=== PATIENT | female | born 1980 | race African-American/Black ===

== ENCOUNTER 2018-08-05 21:09 | Emergency (ER) | payer OTHER ==
[2018-08-05 22:06] LABS: Absolute Lymphocytes (CBC) 1.6 K/uL (0.7-4.9); Absolute Monocytes 0.9 K/uL (0.1-1.3); Absolute Neutrophil 4.9 K/uL (1.8-8.0); Basophils % 0.5 % (0-1.3); Eosinophils % 4.9 % (0-4.4); Hematocrit 36.7 % (36.0-45.0); Lymphocytes % 20.7 % (15.3-44.8); MPV 9.7 fL (7.6-11.3); Monocytes % 11.5 % (3.3-12.3); RBC Red Blood Cell Count 4.37 M/uL (3.86-4.86)
[2018-08-05 22:23] LABS: Albumin 3.7 g/dL (3.4-5.0); Bilirubin Direct 0.2 mg/dL (0-0.2); Bilirubin Total 0.7 mg/dL (0.2-1.0); Potassium 3.8 mmol/L (3.5-5.1); Protein, Total 7.8 g/dL (6.4-8.2)
[2018-08-05] MEDS ORDERED: FENTANYL CITR 100 MCG/2 ML ONE (22:23)
[2018-08-05] MEDS ORDERED: NA CHLORIDE 0.9% 1,000 ML ONE (22:23)
[2018-08-05] MEDS ORDERED: ONDANSETRON 4 MG/2 ML VIAL ONE (22:27)
--- NOTE | 2018-08-05 23:26 | EDPHYS ---
Physician Documentation [facility] Name: Marlee Husain Age: 38 yrs Sex: Female : 1980 Arrival Date: 08/05/2018 Time: 21:12 Bed 8 Private MD: [place] Rhoades ED Physician William Galvan HPI: 08/06 00:41 This 38 yrs old Black Female presents to ER via Ambulatory with complaints of UC FLAIR gs UP. 00:41 The patient presents with abdominal pain in the upper abdomen. Onset: The gs symptoms/episode began/occurred 3 day(s) ago, and became worse and became persistent. The symptoms do not radiate. Associated signs and symptoms: Pertinent positives: nausea and vomiting, diarrhea, Pertinent negatives: blood in stools, vomiting blood. The symptoms are described as crampy, sharp. Modifying factors: The symptoms are alleviated by nothing, the symptoms are aggravated by nothing. Severity of pain: At its worst the pain was severe in the emergency department the pain is unchanged. The patient has experienced similar episodes in the past, multiple times, chronically. The patient has not recently seen a physician. 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 - Social history:: Smoking status: Patient/guardian denies using tobacco. - Ebola Screening: : No symptoms or risks identified at this time. ROS: 08/06 00:41 All other systems are negative. gs Exam: 00:41 Head/Face: Normocephalic, atraumatic. Eyes: Pupils equal round and reactive to light, gs extra-ocular motions intact. Lids and lashes normal. Conjunctiva and sclera are non-icteric and not injected. Cornea within normal limits. Periorbital areas with no swelling, redness, or edema. ENT: Nares patent. No nasal discharge, no septal abnormalities noted. Tympanic membranes are normal and external auditory canals are clear. Oropharynx with no redness, swelling, or masses, exudates, or evidence of obstruction, uvula midline. Mucous membranes moist. Neck: Trachea midline, no thyromegaly or masses palpated, and no cervical lymphadenopathy. Supple, full range of motion without nuchal rigidity, or vertebral point tenderness. No Meningismus. Chest/axilla: Normal chest wall appearance and motion. Nontender with no deformity. No lesions are appreciated. 00:41 Respiratory: Lungs have equal breath sounds bilaterally, clear to auscultation and percussion. No rales, rhonchi or wheezes noted. No increased work of breathing, no retractions or nasal flaring. Back: No spinal tenderness. No costovertebral tenderness. Full range of motion. Skin: Warm, dry with normal turgor. Normal color with no rashes, no lesions, and no evidence of cellulitis. MS/ Extremity: Pulses equal, no cyanosis. Neurovascular intact. Full, normal range of motion. Neuro: Awake and alert, GCS 15, oriented to person, place, time, and situation. Cranial nerves II-XII grossly intact. Motor strength 5/5 in all extremities. Sensory grossly intact. Cerebellar exam normal. Normal gait. 00:41 Constitutional: The patient appears alert, awake, uncomfortable. 00:41 Cardiovascular: Rate: tachycardic, Rhythm: regular, Pulses: no pulse deficits are appreciated, Heart sounds: normal. 00:41 Abdomen/GI: Palpation: moderate abdominal tenderness, in all quadrants, rebound tenderness, is not appreciated. Vital Signs: 08/05 21:28 BP 115 / 96; Pulse 112; Resp 16; Temp 98.5(O); Pulse Ox 98% on R/A; Height 5 ft. 7 in. la1 (170.18 cm); Pain 10/10; 22:15 BP 118 / 91; Pulse 100; Resp 16; Pulse Ox 100% ; aa1 23:43 BP 125 / 90; Pulse 97; Resp 16; Pulse Ox 99% on R/A; Pain 1/10; aa1 MDM: 22:01 Patient medically screened. gs 08/06 00:41 Differential diagnosis: gastritis, non-specific abd pain, pancreatitis, uc flare. Data gs reviewed: vital signs, nurses notes, lab test result(s). Counseling: I had a detailed discussion with the patient and/or guardian regarding: the historical points, exam findings, and any diagnostic results supporting the discharge/admit diagnosis, lab results, the need for outpatient follow up. Response to treatment: the patient's symptoms have markedly improved after treatment, the patient's condition has returned to base line, and as a result, I will discharge patient. 08/05 21:51 Order name: Basic Metabolic Panel; Complete Time: 23:18 08/05 21:51 Order name: CBC with Diff; Complete Time: 23:18 08/05 21:51 Order name: Hepatic Function; Complete Time: 23:18 08/05 21:51 Order name: Lipase; Complete Time: 23:18 08/05 21:51 Order name: Urine Microscopic Only 08/05 23:36 Order name: Urine Dipstick--Ancillary (enter results) 2 08/05 21:51 Order name: IV Saline Lock; Complete Time: 22:02 08/05 21:51 Order name: Labs collected and sent; Complete Time: 22:02 08/05 21:51 Order name: Urine Test (obtain specimen); Complete Time: 23:37 08/05 21:51 Order name: Urine Dipstick-Ancillary (obtain specimen); Complete Time: 23:37 08/05 23:36 Order name: Urine --Ancillary (enter results) 2 Administered Medications: 08/05 22:13 Drug: NS 0.9% 1000 ml Route: IV; Rate: 1 bolus; Site: right antecubital; ea 23:36 Follow up: IV Status: Completed infusion; IV Intake: 1000ml aa1 22:15 Drug: fentaNYL (PF) 50 mcg Route: IVP; Site: right antecubital; aa1 23:36 Follow up: Response: No adverse reaction; Pain is decreased aa1 22:17 Drug: Zofran 4 mg Route: IVP; Site: right antecubital; ea 23:36 Follow up: Response: No adverse reaction; Nausea is decreased aa1 Disposition: 08/05/18 23:25 Discharged to Home. Impression: Vomiting, Diarrhea, unspecified, Ulcerative (chronic) pancolitis. - Condition is Stable. - Discharge Instructions: Diarrhea, Adult, Nausea and Vomiting, Adult. - Prescriptions for Prednisone 20 mg Oral Tablet - take 1 tablet by ORAL route once daily for 5 days; 5 tablet. Zofran 4 mg Oral Tablet - take 1 tablet by ORAL route every 12 hours As needed; 6 tablet. - Medication Reconciliation Form, Thank You Letter, Antibiotic Education, Prescription Opioid Use form. - Follow up: Private Physician; When: 2 - 3 days; Reason: Re-evaluation by your physician. Signatures: Dispatcher [employer] EDAR Ashley Guidry RN RN aa1 Job Terry RN RN la1 Yusra Guerrier RN RN ea Starr, Gregory, MD MD gs Corrections: (The following items were deleted from the chart) 23:45 23:25 08/05/2018 23:25 Discharged to Home. Impression: Vomiting; Diarrhea, unspecified; aa1 Ulcerative (chronic) pancolitis. Condition is Stable. Forms are Medication Reconciliation Form, Thank You Letter, Antibiotic Education, Prescription Opioid Use. Follow up: Private Physician; When: 2 - 3 days; Reason: Re-evaluation by your physician. gs
--- NOTE | 2018-08-05 23:26 | ER ---
Nurse's Notes [facility] Name: Marlee Husain Age: 38 yrs Sex: Female : 1980 Arrival Date: 08/05/2018 Time: 21:12 Bed 8 Private MD: Houston Rhoades Diagnosis: Vomiting;Diarrhea, unspecified;Ulcerative (chronic) pancolitis Presentation: 08/05 21:25 Presenting complaint: Patient states: I have UC and I have been having abd pain, N/V/D la1 since Tuesday, its getting worse. Transition of care: patient was not received from another setting of care. Onset of symptoms was August 05, 2018. Risk Assessment: Do you want to hurt yourself or someone else? Patient reports no desire to harm self or others. Initial Sepsis Screen: Does the patient meet any 2 criteria? No. Patient's initial sepsis screen is negative. Does the patient have a suspected source of infection? No. Patient's initial sepsis screen is negative. Care prior to arrival: None. 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 - Social history:: Smoking status: Patient/guardian denies using tobacco. - Ebola Screening: : No symptoms or risks identified at this time. Screenin:40 Abuse screen: Denies threats or abuse. Denies injuries from another. Nutritional aa1 screening: No deficits noted. Tuberculosis screening: No symptoms or risk factors identified. Fall Risk None identified. Assessment: 21:40 General: Appears in no apparent distress. comfortable, Behavior is calm, cooperative, aa1 appropriate for age. Pain: Complains of pain in abdomen Pain currently is 10 out of 10 on a pain scale. Pain began 2-3 days ago. Is continuous. Neuro: Level of Consciousness is awake, alert, obeys commands, Oriented to person, place, time, situation, Moves all extremities. Speech is normal. Cardiovascular: Heart tones S1 S2 present. Respiratory: Airway is patent Respiratory effort is even, unlabored, Respiratory pattern is regular, symmetrical. GI: Abdomen is non-distended, Bowel sounds present X 4 quads. Abd is soft X 4 quads Reports lower abdominal pain, upper abdominal pain, diarrhea, nausea, vomiting. : No signs and/or symptoms were reported regarding the genitourinary system. Derm: Skin is intact, is healthy with good turgor, Skin is pink, warm \T\ dry. Musculoskeletal: Circulation, motion, and sensation intact. Capillary refill < 3 seconds. 22:30 Reassessment: Patient appears in no apparent distress at this time. Patient and/or aa1 family updated on plan of care and expected duration. Pain level reassessed. Patient is alert, oriented x 3, equal unlabored respirations, skin warm/dry/pink. Awaiting lab results and urine sample Patient states feeling better. 23:43 Reassessment: Patient appears in no apparent distress at this time. Patient is alert, aa1 oriented x 3, equal unlabored respirations, skin warm/dry/pink. Discussed d/c \T\ f/u instructions with pt \T\ family; denies questions or concerns at this time. Amb to lobby with steady gait. Vital Signs: 21:28 BP 115 / 96; Pulse 112; Resp 16; Temp 98.5(O); Pulse Ox 98% on R/A; Height 5 ft. 7 in. la1 (170.18 cm); Pain 10/10; 22:15 BP 118 / 91; Pulse 100; Resp 16; Pulse Ox 100% ; aa1 23:43 BP 125 / 90; Pulse 97; Resp 16; Pulse Ox 99% on R/A; Pain 1/10; aa1 ED Course: 21:12 Patient arrived in ED. es 21:13 Houston Rhoades MD is Private Physician. es 21:26 Triage completed. la1 21:27 Arm band placed on right wrist. la1 21:33 William Galvan MD is Attending Physician. gs 21:40 Patient has correct armband on for positive identification. Bed in low position. Call aa1 light in reach. Pulse ox on. NIBP on. Warm blanket given. 21:56 Ashley Guidry, RN is Primary Nurse. aa1 22:02 Inserted saline lock: 20 gauge in right antecubital area, using aseptic technique. mn Blood collected. 23:43 No provider procedures requiring assistance completed. IV discontinued, intact, aa1 bleeding controlled, No redness/swelling at site. Pressure dressing applied. Administered Medications: 22:13 Drug: NS 0.9% 1000 ml Route: IV; Rate: 1 bolus; Site: right antecubital; ea 23:36 Follow up: IV Status: Completed infusion; IV Intake: 1000ml aa1 22:15 Drug: fentaNYL (PF) 50 mcg Route: IVP; Site: right antecubital; aa1 23:36 Follow up: Response: No adverse reaction; Pain is decreased aa1 22:17 Drug: Zofran 4 mg Route: IVP; Site: right antecubital; ea 23:36 Follow up: Response: No adverse reaction; Nausea is decreased aa1 Intake: 23:36 IV: 1000ml; Total: 1000ml. aa1 Outcome: 23:25 Discharge ordered by . gs 23:43 Discharged to home ambulatory, with significant other. aa1 23:43 Condition: good 23:43 Discharge instructions given to patient, significant other, Instructed on discharge instructions, follow up and referral plans. medication usage, Demonstrated understanding of instructions, follow-up care, medications, Prescriptions given X 2. 23:45 Patient left the ED. aa1 Signatures: Ashley Guidry RN RN aa1 Misty Mcbride Lee, RN RN la1 Thompson, Moriah mt Antunez, Elena, RN RN ea Starr, Gregory, MD MD
[2018-08-05 23:43] LABS: Urine Bacteria <20 /HPF (<20); Urine Culture Reflex Order NOT NEEDED; Urine RBC <5 /HPF (NONE SEEN)
[2018-08-05 23:45] LABS: Urine Blood TRACE (NEG); Urine Glucose NEGATIVE (NEG); Urine Protein NEGATIVE (NEG); Urine Specific Gravity 1.025 (1.005-1.030)
[2018-08-05 23:56] VITALS: TEMP 98.5
[2018-08-05 23:57] VITALS: BP 118/91; O2SAT 100
== END 2018-08-05 23:45 | disposition home or self-care (01) ==
LOC: ER 21:09
DX: K51.00 Ulcerative (chronic) pancolitis without complications (principal); Z88.5 Allergy status to narcotic agent
CPT/HCPCS: 36415; 80048; 80076; 81003; 81015; 81025; 83690; 85025; 96361; 96374; 96375; 99284; J2405; J3010; J7030

== ENCOUNTER 2018-08-06 09:10 | Inpatient (IN) | payer OTHER ==
[2018-08-06 10:09] LABS: Hematocrit 35.8 % (36.0-45.0); RBC Red Blood Cell Count 4.27 M/uL (3.86-4.86)
[2018-08-06 10:10] LABS: Absolute Monocytes 0.6 K/uL (0.1-1.3); Absolute Neutrophil 7.1 K/uL (1.8-8.0); Basophils % 0.3 % (0-1.3); Eosinophils % 2.5 % (0-4.4); Lymphocytes % 11.5 % (15.3-44.8); MPV 9.7 fL (7.6-11.3); Monocytes % 6.9 % (3.3-12.3)
[2018-08-06] MEDS ORDERED: ONDANSETRON 4 MG/2 ML VIAL ONE ×2 (10:14→11:09)
[2018-08-06] MEDS ORDERED: NA CHLORIDE 0.9% 1,000 ML ONE ×3 (10:15→18:43)
[2018-08-06 10:25] LABS: Albumin 3.4 g/dL (3.4-5.0); Bilirubin Direct 0.2 mg/dL (0-0.2); Bilirubin Total 0.6 mg/dL (0.2-1.0); Potassium 4.1 mmol/L (3.5-5.1); Protein, Total 7.4 g/dL (6.4-8.2)
[2018-08-06] MEDS ORDERED: FENTANYL CITR 100 MCG/2 ML ONE (10:39)
[2018-08-06] MEDS ORDERED: PANTOPRAZOLE 40 MG INJ ONE (10:39)
[2018-08-06] MEDS ORDERED: METRONIDAZOLE 500mg IVPB 500 MG/100 ML BAG IV ONE (11:09)
--- NOTE | 2018-08-06 11:53 | RAD REPORT ---
EXAM DESCRIPTION: RAD - Abdomen Acute Series - 08/06/2018 11:33 am CLINICAL HISTORY: Abdominal pain FINDINGS: The bowel gas pattern is unremarkable Calcifications in the pelvis probably represent phleboliths. Free air is not seen beneath the diaphra gm. The lungs appear clear of acute infiltrate
--- NOTE | 2018-08-06 12:15 | EDPHYS ---
Physician Documentation [facility] Name: Marlee Husain Age: 38 yrs Sex: Female : 1980 Arrival Date: 08/06/2018 Time: 09:12 Bed 7 Private MD: Houston Rhoades ED Physician Juan Diego Mehta HPI: 08/06 10:00 This 38 yrs old Black Female presents to ER via Ambulatory with complaints of Abdominal surekha Pain, Vomiting. 10:00 The patient presents to the emergency department with nausea, vomiting. Onset: The surekha symptoms/episode began/occurred 3 day(s) ago. Possible causes: flare up of bowel problem, ulcerative colitis. The symptoms are aggravated by movement, pressure, food , The symptoms are alleviated by nothing. remaining still. Associated signs and symptoms: Pertinent positives: nausea, vomiting. Severity of symptoms: At their worst the symptoms were mild moderate in the emergency department the symptoms are unchanged. The patient has experienced similar episodes in the past, multiple times. Historical: - Allergies: 09:36 hydrocodone bitartrate; hb - Home Meds: 09:36 Bentyl Oral [Active]; Lialda 1.2 gram Oral TbEC 2 tabs once daily [Active]; mesalamine hb Oral 2 caps once daily for ulcerative colitis [Active]; omeprazole 40 mg Oral cpDR 1 cap once daily [Active]; Zofran (as hydrochloride) 4 mg Oral tab [Active]; - PMHx: 09:36 ulcerative colitis; hb - PSHx: 09:36 Hernia repair; hb - Immunization history:: Adult Immunizations up to date. - Social history:: Smoking status: Patient/guardian denies using tobacco. - Ebola Screening: : No symptoms or risks identified at this time. - Family history:: not pertinent. ROS: 10:00 Constitutional: Negative for fever, chills, and weight loss, Eyes: Negative for injury, surekha pain, redness, and discharge, ENT: Negative for injury, pain, and discharge, Neck: Negative for injury, pain, and swelling, Cardiovascular: Negative for chest pain, palpitations, and edema, Respiratory: Negative for shortness of breath, cough, wheezing, and pleuritic chest pain, Back: Negative for injury and pain, : Negative for injury, bleeding, discharge, and swelling, MS/Extremity: Negative for injury and deformity, Skin: Negative for injury, rash, and discoloration, Neuro: Negative for headache, weakness, numbness, tingling, and seizure, Psych: Negative for depression, anxiety, suicide ideation, homicidal ideation, and hallucinations, Allergy/Immunology: Negative for hives, rash, and allergies, Endocrine: Negative for neck swelling, polydipsia, polyuria, polyphagia, and marked weight changes, Hematologic/Lymphatic: Negative for swollen nodes, abnormal bleeding, and unusual bruising. 10:00 Abdomen/GI: Positive for abdominal pain. Exam: 10:00 Constitutional: This is a well developed, well nourished patient who is awake, alert, surekha and in no acute distress. Head/Face: Normocephalic, atraumatic. Eyes: Pupils equal round and reactive to light, extra-ocular motions intact. Lids and lashes normal. Conjunctiva and sclera are non-icteric and not injected. Cornea within normal limits. Periorbital areas with no swelling, redness, or edema. ENT: Nares patent. No nasal discharge, no septal abnormalities noted. Tympanic membranes are normal and external auditory canals are clear. Oropharynx with no redness, swelling, or masses, exudates, or evidence of obstruction, uvula midline. Mucous membranes moist. Neck: Trachea midline, no thyromegaly or masses palpated, and no cervical lymphadenopathy. Supple, full range of motion without nuchal rigidity, or vertebral point tenderness. No Meningismus. Chest/axilla: Normal chest wall appearance and motion. Nontender with no deformity. No lesions are appreciated. Cardiovascular: Regular rate and rhythm with a normal S1 and S2. No gallops, murmurs, or rubs. Normal PMI, no JVD. No pulse deficits. Respiratory: Lungs have equal breath sounds bilaterally, clear to auscultation and percussion. No rales, rhonchi or wheezes noted. No increased work of breathing, no retractions or nasal flaring. Back: No spinal tenderness. No costovertebral tenderness. Full range of motion. Skin: Warm, dry with normal turgor. Normal color with no rashes, no lesions, and no evidence of cellulitis. MS/ Extremity: Pulses equal, no cyanosis. Neurovascular intact. Full, normal range of motion. Neuro: Awake and alert, GCS 15, oriented to person, place, time, and situation. Cranial nerves II-XII grossly intact. Motor strength 5/5 in all extremities. Sensory grossly intact. Cerebellar exam normal. Normal gait. Psych: Awake, alert, with orientation to person, place and time. Behavior, mood, and affect are within normal limits. 10:00 Abdomen/GI: Inspection: abdomen appears normal, Bowel sounds: normal, Palpation: mild abdominal tenderness, in all quadrants, Liver: no appreciated palpable abnormalities, Hernia: not appreciated. Vital Signs: 09:36 BP 108 / 69; Pulse 99; Resp 16; Temp 98.1; Pulse Ox 99% on R/A; Pain 8/10; hb 10:38 BP 121 / 89; Pulse 89; Resp 18; Pulse Ox 98% on R/A; Pain 6/10; ph 11:51 BP 118 / 82; Pulse 87; Resp 16; Pulse Ox 100% on R/A; Pain 5/10; ph 13:00 BP 121 / 78; Pulse 84; Resp 18; Pulse Ox 98% on R/A; ph 14:30 BP 115 / 78; Pulse 81; Resp 16; Pulse Ox 98% on R/A; ph 15:30 BP 112 / 72; Pulse 82; Resp 16; Pulse Ox 99% on R/A; ph 17:00 BP 110 / 76; Pulse 82; Resp 18; Pulse Ox 100% on R/A; ph MDM: 09:[address] [facility] 10:00 Data reviewed: vital signs, nurses notes, lab test result(s), radiologic studies, plain surekha films. 08/06 09:35 Order name: Basic Metabolic Panel; Complete Time: 11:06 [facility] 08/06 09:35 Order name: CBC with Diff; Complete Time: 11: [facility] 08/06 09:35 Order name: Creatinine for Radiology; Complete Time: 11:06 [facility] 08/06 09:35 Order name: Hepatic Function; Complete Time: 11:06 [facility] 08/06 09:35 Order name: Lipase; Complete Time: 11:06 [facility] 08/06 13:11 Order name: Test Serum, [facility] EDMS 08/06 09:57 Order name: Abdomen Acute Series XRAY; Complete Time: 12:04 [facility] 08/06 09:35 Order name: IV Saline Lock; Complete Time: 09:59 [facility] 08/06 09:35 Order name: Labs collected and sent; Complete Time: 09:59 [facility] 08/06 09:57 Order name: EKG; Complete Time: 09:58 [facility] 08/06 09:57 Order name: EKG - Nurse/Tech; Complete Time: 10:44 [facility] Administered Medications: 10:07 Drug: NS 0.9% 1000 ml Route: IV; Rate: 1 bolus; Site: right antecubital; ph 11:06 Follow up: Response: No adverse reaction; IV Status: Completed infusion; IV Intake: ph 1000ml 10:07 Drug: Zofran 4 mg Route: IVP; Site: right antecubital; ph 11:07 Follow up: Response: No adverse reaction ph 10:31 Drug: ProTONIX 40 mg Route: IVP; Site: right antecubital; ph 11:07 Follow up: Response: No adverse reaction ph 10:31 Drug: fentaNYL (PF) 25 mcg Route: IVP; Site: right antecubital; ph 11:08 Follow up: Response: No adverse reaction; Pain is decreased ph 11:04 Drug: fentaNYL (PF) 25 mcg Route: IVP; Site: right antecubital; ph 11:08 Follow up: Response: No adverse reaction; Pain is decreased ph 11:05 Drug: Flagyl 500 mg Volume: 100 ml; Route: IVPB; Rate: 200 ml/hr; Infused Over: 30 ph mins; Site: right antecubital; 11:35 Follow up: Response: No adverse reaction; IV Status: Completed infusion ph 11:35 Drug: NS 0.9% 1000 ml Route: IV; Rate: 1 bolus; Site: right antecubital; ph 12:40 Follow up: Response: No adverse reaction; IV Status: Completed infusion ph 13:13 Drug: Zofran 4 mg Route: IVP; Site: right antecubital; ph 13:45 Follow up: Response: No adverse reaction ph 13:40 Drug: D5-1/2 NS with KCl 20 mEq/L 1000 ml Route: IV; Rate: 125 ml/hr; Site: right ph antecubital; 13:40 Drug: Phenergan 12.5 mg Route: IVP; Site: right antecubital; ph 14:30 Follow up: Response: No adverse reaction; Nausea is decreased ph 13:42 Drug: morphine 4 mg Route: IVP; Site: right antecubital; ph 14:30 Follow up: Response: No adverse reaction; Pain is decreased ph 17:56 Drug: morphine 4 mg Route: IVP; Site: right forearm; hb 18:10 Follow up: Response: No adverse reaction; Pain is decreased ph Disposition: 08/06/18 12:14 Hospitalization ordered by Cecilia Lassiter for Inpatient Admission. Preliminary diagnosis are Abdominal tenderness, Vomiting, Infectious gastroenteritis and colitis, unspecified - hx ulcerative colitis. - Bed requested for Telemetry/MedSurg (Inpatient). - Status is Inpatient Admission. hb - Condition is Stable. - Problem is new. - Symptoms have improved. UTI on Admission? No Signatures: Dispatcher [employer] EDMS Juan Diego Mehta MD MD cha Solis, Maria ms Delma Heath RN RN Esther Jean RN RN Corrections: (The following items were deleted from the chart) 10:45 09:[address] [facility] ph 10:46 09:35 Urine Dipstick-Ancillary ordered. [facility] ph 17:13 12:14 Hospitalization Ordered by Cecilia Lassiter MD for Inpatient Admission. Preliminary ms diagnosis is Abdominal tenderness; Vomiting; Infectious gastroenteritis and colitis, unspecified - hx ulcerative colitis. Bed requested for Telemetry/MedSurg (Inpatient). Status is Inpatient Admission. Condition is Stable. Problem is new. Symptoms have improved. UTI on Admission? No. surekha 18:22 17:13 08/06/2018 12:14 Hospitalization Ordered by Cecilia Lassiter MD for Inpatient hb Admission. Preliminary diagnosis is Abdominal tenderness; Vomiting; Infectious gastroenteritis and colitis, unspecified - hx ulcerative colitis. Bed requested for Telemetry/MedSurg (Inpatient). Status is Inpatient Admission. Condition is Stable. Problem is new. Symptoms have improved. UTI on Admission? No. ms
--- NOTE | 2018-08-06 12:15 | ER ---
Nurse's Notes [facility] Name: Marlee Husain Age: 38 yrs Sex: Female : 1980 Arrival Date: 08/06/2018 Time: 09:12 Bed 7 Private MD: Houston Rhoades Diagnosis: Abdominal tenderness;Vomiting;Infectious gastroenteritis and colitis, unspecified-hx ulcerative colitis Presentation: 08/06 09:33 Presenting complaint: N/V/D and abdominal pain x 2-3 days, chest pain since last night. hb Seen in ED yesterday for same s/s, dx colitis, did not fill prednisone or Zofran prescriptions. Transition of care: patient was not received from another setting of care. Onset of symptoms was August 04, 2018. Risk Assessment: Do you want to hurt yourself or someone else? Patient reports no desire to harm self or others. Initial Sepsis Screen: Does the patient meet any 2 criteria? No. Patient's initial sepsis screen is negative. Does the patient have a suspected source of infection? No. Patient's initial sepsis screen is negative. Care prior to arrival: None. 09:33 Method Of Arrival: Ambulatory hb 09:33 Acuity: GINETTE 3 hb Historical: - Allergies: 09:36 hydrocodone bitartrate; hb - Home Meds: 09:36 Bentyl Oral [Active]; Lialda 1.2 gram Oral TbEC 2 tabs once daily [Active]; mesalamine hb Oral 2 caps once daily for ulcerative colitis [Active]; omeprazole 40 mg Oral cpDR 1 cap once daily [Active]; Zofran (as hydrochloride) 4 mg Oral tab [Active]; - PMHx: 09:36 ulcerative colitis; hb - PSHx: 09:36 Hernia repair; hb - Immunization history:: Adult Immunizations up to date. - Social history:: Smoking status: Patient/guardian denies using tobacco. - Ebola Screening: : No symptoms or risks identified at this time. - Family history:: not pertinent. Screenin:36 Abuse screen: Denies threats or abuse. Denies injuries from another. Nutritional hb screening: No deficits noted. Tuberculosis screening: No symptoms or risk factors identified. Fall Risk None identified. Assessment: 09:45 General: Appears in no apparent distress. comfortable, slender, well groomed, Behavior ph is calm, cooperative, appropriate for age, Denies fever. Pain: Complains of pain in right upper quadrant and left upper quadrant Pain radiates to chest. Neuro: Level of Consciousness is awake, alert, obeys commands, Oriented to person, place, time, situation. Cardiovascular: Capillary refill < 3 seconds in bilateral fingers Patient's skin is warm and dry. Respiratory: Airway is patent Respiratory effort is even, unlabored, Respiratory pattern is regular, symmetrical. GI: Abdomen is flat, non-distended, Bowel sounds present X 4 quads. Abd is soft X 4 quads Abdomen is tender to palpation X 4 quads. Derm: Skin is intact, Skin is pink, warm \T\ dry. Musculoskeletal: Circulation, motion, and sensation intact. Range of motion: intact in all extremities. 10:00 Reassessment: Patient appears in no apparent distress at this time. Patient and/or ph family updated on plan of care and expected duration. Pain level reassessed. Patient is alert, oriented x 3, equal unlabored respirations, skin warm/dry/pink. Pt reports that pain has improved to 7/10 and denies nausea at this time, awaiting Xray, VSS, SO at bedside. 11:54 Reassessment: Patient appears in no apparent distress at this time. Patient and/or ph family updated on plan of care and expected duration. Pain level reassessed. Patient is alert, oriented x 3, equal unlabored respirations, skin warm/dry/pink. Pt resting quietly, awaiting Xray results, VSS. 13:00 Reassessment: Patient appears in no apparent distress at this time. Patient and/or ph family updated on plan of care and expected duration. Pain level reassessed. Patient is alert, oriented x 3, equal unlabored respirations, skin warm/dry/pink. Pt c/o pain and nausea, ERP notified. 14:00 Reassessment: Patient appears in no apparent distress at this time. Patient and/or ph family updated on plan of care and expected duration. Pain level reassessed. Pt resting quitely, reports that paiun is well controlled after IV morphine, denies nausea at this time, awaiting room assignment. 15:00 Reassessment: Patient appears in no apparent distress at this time. No changes from ph previously documented assessment. Patient and/or family updated on plan of care and expected duration. Pain level reassessed. 16:00 Reassessment: Patient appears in no apparent distress at this time. No changes from ph previously documented assessment. Patient and/or family updated on plan of care and expected duration. Pain level reassessed. Patient is alert, oriented x 3, equal unlabored respirations, skin warm/dry/pink. 17:00 Reassessment: Patient appears in no apparent distress at this time. No changes from ph previously documented assessment. Patient and/or family updated on plan of care and expected duration. Pain level reassessed. Vital Signs: 09:36 BP 108 / 69; Pulse 99; Resp 16; Temp 98.1; Pulse Ox 99% on R/A; Pain 8/10; hb 10:38 BP 121 / 89; Pulse 89; Resp 18; Pulse Ox 98% on R/A; Pain 6/10; ph 11:51 BP 118 / 82; Pulse 87; Resp 16; Pulse Ox 100% on R/A; Pain 5/10; ph 13:00 BP 121 / 78; Pulse 84; Resp 18; Pulse Ox 98% on R/A; ph 14:30 BP 115 / 78; Pulse 81; Resp 16; Pulse Ox 98% on R/A; ph 15:30 BP 112 / 72; Pulse 82; Resp 16; Pulse Ox 99% on R/A; ph 17:00 BP 110 / 76; Pulse 82; Resp 18; Pulse Ox 100% on R/A; ph ED Course: 09:12 Patient arrived in ED. mr 09:12 Houston Rhoades MD is Private Physician. mr 09:32 Juan Diego Mehta MD is Attending Physician. surekha 09:35 Triage completed. hb 09:36 Arm band placed on. hb 09:50 Inserted saline lock: 20 gauge in right antecubital area, using aseptic technique. ph 09:57 Delma Heath, RN is Primary Nurse. ph 10:37 Patient has correct armband on for positive identification. Bed in low position. Call ph light in reach. Side rails up X 1. Pulse ox on. NIBP on. Door closed. Noise minimized. Warm blanket given. 10:37 No provider procedures requiring assistance completed. ph 10:51 EKG done, by ED staff, reviewed by Juan Diego Mehta MD. em1 11:33 Abdomen Acute Series XRAY In Process Unspecified. EDMS 12:12 Cecilia Lassiter MD is Hospitalizing Provider. surekha 18:20 Patient admitted, IV remains in place. ph Administered Medications: 10:07 Drug: NS 0.9% 1000 ml Route: IV; Rate: 1 bolus; Site: right antecubital; ph 11:06 Follow up: Response: No adverse reaction; IV Status: Completed infusion; IV Intake: ph 1000ml 10:07 Drug: Zofran 4 mg Route: IVP; Site: right antecubital; ph 11:07 Follow up: Response: No adverse reaction ph 10:31 Drug: ProTONIX 40 mg Route: IVP; Site: right antecubital; ph 11:07 Follow up: Response: No adverse reaction ph 10:31 Drug: fentaNYL (PF) 25 mcg Route: IVP; Site: right antecubital; ph 11:08 Follow up: Response: No adverse reaction; Pain is decreased ph 11:04 Drug: fentaNYL (PF) 25 mcg Route: IVP; Site: right antecubital; ph 11:08 Follow up: Response: No adverse reaction; Pain is decreased ph 11:05 Drug: Flagyl 500 mg Volume: 100 ml; Route: IVPB; Rate: 200 ml/hr; Infused Over: 30 ph mins; Site: right antecubital; 11:35 Follow up: Response: No adverse reaction; IV Status: Completed infusion ph 11:35 Drug: NS 0.9% 1000 ml Route: IV; Rate: 1 bolus; Site: right antecubital; ph 12:40 Follow up: Response: No adverse reaction; IV Status: Completed infusion ph 13:13 Drug: Zofran 4 mg Route: IVP; Site: right antecubital; ph 13:45 Follow up: Response: No adverse reaction ph 13:40 Drug: D5-1/2 NS with KCl 20 mEq/L 1000 ml Route: IV; Rate: 125 ml/hr; Site: right ph antecubital; 13:40 Drug: Phenergan 12.5 mg Route: IVP; Site: right antecubital; ph 14:30 Follow up: Response: No adverse reaction; Nausea is decreased ph 13:42 Drug: morphine 4 mg Route: IVP; Site: right antecubital; ph 14:30 Follow up: Response: No adverse reaction; Pain is decreased ph 17:56 Drug: morphine 4 mg Route: IVP; Site: right forearm; hb 18:10 Follow up: Response: No adverse reaction; Pain is decreased ph Intake: 11:06 IV: 1000ml; Total: 1000ml. ph Outcome: 12:14 Decision to Hospitalize by Provider. [facility] 18:22 Patient left the ED. hb 18:22 Admitted to Med/surg accompanied by tech, family with patient, via wheelchair, with ph chart. 18:22 Condition: stable 18:22 Instructed on the need for admit. Signatures: Dispatcher [employer] Juan Diego Rachel MD MD cha Rivera, Brittany Pritchett, Delma Crow, RN RN Esther Jean RN RN hb
[2018-08-06] MEDS ORDERED: D5.45NS W/KCL 20MEQ 1,000 ML IV ONE (13:10)
[2018-08-06] MEDS ORDERED: PROMETHAZINE 25 MG/ML VIAL ONE (13:40)
[2018-08-06] MEDS ORDERED: MORPHINE 4 MG/ML SYR ONE ×2 (13:42→18:07)
[2018-08-06] MEDS ORDERED: PROMETHAZINE 25 MG/ML VIAL IV PRN (18:13)
[2018-08-06] MEDS ORDERED: ONDANSETRON 4 MG/2 ML VIAL IV PRN (18:13)
[2018-08-06 18:31] VITALS: BMI 19.3
[2018-08-06] MEDS: METRONIDAZOLE 500mg IVPB 500 MG/100 ML BAG IV SCH (18:32)
[2018-08-06] MEDS: METHYLPREDNISOLONE 125 MG INJ IV SCH (18:32)
[2018-08-06] MEDS: NA CHLORIDE 0.9% 1,000 ML IV SCH (18:32)
[2018-08-06] MEDS: CIPROFLOXACIN 400mg IV 400 MG/200 ML BAG IV SCH (20:48)
[2018-08-06] MEDS: MORPHINE 2 MG/ML SYR IV PRN (22:03)
[2018-08-06 23:21] LABS: Urine Appearance CLEAR; Urine Bilirubin NEGATIVE (NEG); Urine Blood NEGATIVE (NEG); Urine Color YELLOW; Urine Glucose NEGATIVE (NEG); Urine Protein NEGATIVE (NEG); Urine Specific Gravity 1.015 (1.005-1.030); Urine Urobilinogen 0.2 mg/dL (0.2-1.0); Urine pH 5.5 (5.0-7.0)
[2018-08-07 00:12] LABS: Urine Bacteria <20 /HPF (<20); Urine Culture Reflex Order NOT NEEDED; Urine RBC NONE SEEN /HPF (NONE SEEN)
--- NOTE | 2018-08-07 00:21 | HP ---
Date of Admission: 08/06/2018 General Operator: Dr. Rhoades with GI. Chief Complaint: Abdominal pain, nausea, vomiting. History Of Present Illness: The patient is a 38-year-old female with past medical history of ulcerat salo colitis diagnosed about 4 years ago, who has been seeing Dr. Rhoades as an outpatient, on mesala mine and omeprazole, whose last flare-up was approximately 1 year ago, comes in with acute abdominal pain that has been ongoing for the past 4 days. The patient states her symptoms are constant, modera te, progressively worsening. She is unable to tolerate any p.o. intake. She has had several episode s of nausea and vomiting. No diarrhea or constipation. No blood in the stool. The patient denies a ny fevers, chills or ill contacts. The patient's last scope was approximately 5 to 6 months ago in summer and things were looking better. There were a few abnormal areas according to the family me mber. The patient was recently in the ER the day prior to admission, was given pain medications and sent home. In the ER, her workup revealed normal white blood cell count. Imaging studies including the acute abdominal series showed an unremarkable bowel gas pattern. The patient was given IV pain m edications, antiemetics, and IV steroids. The patient was then referred for admission. Dr. Mehta spoke with Dr. hRoades who will see the patient in a.m. The patient was referred for admission. W hen seen in the ER, she was drowsy due to pain medications. Otherwise, complaining of some abdominal pain and burning chest pain from reflux. Past Medical History: Gastroesophageal reflux disease, ulcerative colitis. Surgical History: and hernia repair. Allergies: TO HYDROCODONE. Medications: List reviewed. The patient takes mesalamine 2 caps daily and omeprazole 40 mg daily. Social History: The patient denies any tobacco use, alcohol use, or illicit drug use. Family History: Hypertension, diabetes, hyperlipidemia, sickle cell trait, and colon cancer run in [facility] family. Last menstrual period was on 07/05/2018. Review of Systems: An 11-point system reviewed, negative except as per HPI. Physical Examination: Vital Signs: Blood pressure 108/69, pulse 99, respirations 16, temperature 98.1, O2 99% on room air. General: Awake, alert, oriented x3, ill-appearing female, in some mild distress, cachectic. HEENT: Normocephalic, atraumatic. PERRLA. EOMI. Dry mucous membranes. Oropharynx is clear. Conj unctivae anicteric. Neck: Supple. No JVD. Trachea midline. CV: S1, S2. Regular rate and rhythm. Peripheral pulses present. Respiratory: Moving air well bilaterally. No wheezing or stridor. No use of accessory muscles. Gastrointestinal: Abdomen is soft. Mild tenderness to palpation. No voluntary guarding or rigidity . No palpable masses. Extremities: No clubbing, cyanosis, or edema. No calf tenderness. Neuro: Cranial nerves 2 through 12 intact grossly. No focal neurological deficits. Speech is deb l. Strength is 5/5 bilateral upper and lower extremities. Sensation intact to light touch. Skin: No rashes. Normal skin turgor. Psych: Mood is okay. Affect is full. Insight and judgment are good. Laboratory Data: Sodium 138, potassium 4.1, chloride 107, CO2 19, BUN 9, creatinine 0.97, glucose 78 , calcium 8.3, lipase 262. Serum test is negative. WBC 9.1, H and H 12 and 35.8, platelet s 265, neutrophils 78%. Acute abdominal series personally reviewed shows unremarkable bowel gas elayne baldev. No free air underneath the diaphragm. Lungs clear of infiltrate. Assessment: A 38-year-old female with: 1.Acute ulcerative colitis exacerbation. We will keep the patient n.p.o., start her on IV fluids, I V steroids, and IV antibiotics. Dr. Rhoades with GI has been consulted. We will start on IV analge sics for pain. 2.Acute dehydration. We will continue with IV fluids. The patient has been bolused with 2 L of nor mal saline. 3.Cachexia. 4.Gastrointestinal and deep venous thrombosis prophylaxis with PPI and SCDs. 5.Gastroesophageal reflux disease without esophagitis. Continue PPI. Plan: Admit the patient to Med-Surg, place as inpatient. Length Of Stay: Greater than 2 midnights. JULIANNE Voice ID: [id number]
[2018-08-07] MEDS: METHYLPREDNISOLONE 125 MG INJ IV SCH ×3 (00:47→20:57)
[2018-08-07] MEDS: METRONIDAZOLE 500mg IVPB 500 MG/100 ML BAG IV SCH ×3 (00:48→20:59)
[2018-08-07] MEDS: MORPHINE 2 MG/ML SYR IV PRN ×3 (05:08→20:54)
[2018-08-07 06:29] LABS: Absolute Lymphocytes (CBC) 0.4 K/uL (0.7-4.9); Absolute Monocytes 0.1 K/uL (0.1-1.3); Absolute Neutrophil 7.3 K/uL (1.8-8.0); Basophils % 0.1 % (0-1.3); Hematocrit 30.7 % (36.0-45.0); Lymphocytes % 4.6 % (15.3-44.8); MPV 9.5 fL (7.6-11.3); Monocytes % 0.8 % (3.3-12.3); RBC Red Blood Cell Count 3.62 M/uL (3.86-4.86)
[2018-08-07 06:49] LABS: ALT/SGPT 9 U/L (12-78); AST/SGOT 11 U/L (15-37); Albumin 3.1 g/dL (3.4-5.0); Alkaline Phosphatase 62 U/L (45-117); BUN Blood Urea Nitrogen 6 mg/dL (7-18); Bicarbonate 19 mmol/L (21-32); Bilirubin Total 0.4 mg/dL (0.2-1.0); Glucose Level 124 mg/dL (74-106); Potassium 4.5 mmol/L (3.5-5.1); Protein, Total 6.6 g/dL (6.4-8.2); Sodium Level 142 mmol/L (136-145)
[2018-08-07 06:56] LABS: Blood Morphology Comment NOT SEEN (NOT SEEN); Platelet Estimate ADEQ; Urine White Blood Cell Casts OK
--- NOTE | 2018-08-07 07:47 | EKG ---
Test Date: 2018-08-06 Test Time: 10:45:59 [employer] Supervisor: [place] MEASUREMENT RESULTS: Intervals: Rate: 84 MN: 136 QRSD: 92 QT: 396 QTc: 467 [place]: P: 72 MN: 136 QRS: 74 T: 56 INTERPRETIVE STATEMENTS: Normal sinus rhythm Normal ECG Compared to ECG 05/24/2016 10:34:31 No significant changes Electronically Signed On 08-07-18 07:47:02 CDT by Juan Delgado
[2018-08-07] MEDS: CIPROFLOXACIN 400mg IV 400 MG/200 ML BAG IV SCH ×2 (08:29→21:12)
[2018-08-07] MEDS: NA CHLORIDE 0.9% 1,000 ML IV SCH ×3 (08:30→18:13)
[2018-08-07] MEDS ORDERED: DICYCLOMINE HCL 10 MG CAP PO ONE (08:47)
[2018-08-07] MEDS: HOME MED 1 EA UNK (Mesalamine [Mesalamine] 2 TAB) PO SCH (09:00)
--- NOTE | 2018-08-07 14:39 | PN ---
Date of Progress Note: 08/07/2018 Subjective: The patient is seen and examined, chart reviewed and case discussed with RN. The patient states she is feeling slightly better. Appears less dehydrated. Pain is improved. She states that she has started her menstrual cycle and is having some cramping pain as well. Medications: List reviewed. Physical Examination: Vital Signs: Temperature 97.9, heart rate 103, blood pressure 114/67, respirations 20, O2 98% on room air. General: Awake, alert, oriented x3, ill-appearing female, cachectic, BMI 19. CV: S1, S2. Sinus tachycardia. Peripheral pulses present. Respiratory: Moving air well bilaterally. No wheezing or stridor. Gastrointestinal: Abdomen is soft. Tenderness to palpation. No rebound or guarding. Positive bowel sounds. Extremities: No clubbing, cyanosis, or edema. Neurologic: Nonfocal. Laboratory Data: Sodium 142, potassium 4.5, chloride 111, CO2 19, BUN 6, creatinine 0.75, glucose 124, calcium 8.1, magnesium 1.9. WBC 7.7, H and H 10.5 and 30.7, platelets 243, neutrophils 94.5%. Assessment: A 38-year-old female with: 1. Acute ulcerative colitis exacerbation. Continue IV fluids, steroids, and antibiotics. We will start on clear liquid diet. Dr. Rhoades of GI has been consulted. Continue pain medications. 2. Acute dehydration, improved with IV fluids. 3. Gastroesophageal reflux disease without esophagitis. Continue PPI. 4. Deep vein thrombosis prophylaxis with PPI and SCDs. Early persistent ambulation. Plan: Resume home medications. Follow up with GI recommendations. JULIANNE Voice ID: [id number] Report ID: [id number] MTDHilary
[2018-08-07] MEDS: ENSURE CLEAR 200 ML CAN PO SCH (21:13)
[2018-08-07] MEDS ORDERED: BENZONATATE 100 MG CAP PO PRN (22:26)
[2018-08-08] MEDS: METHYLPREDNISOLONE 125 MG INJ IV SCH ×2 (01:25→08:55)
[2018-08-08] MEDS: METRONIDAZOLE 500mg IVPB 500 MG/100 ML BAG IV SCH ×2 (01:25→08:55)
[2018-08-08] MEDS: MORPHINE 2 MG/ML SYR IV PRN ×2 (01:26→08:54)
[2018-08-08] MEDS: NA CHLORIDE 0.9% 1,000 ML IV SCH ×3 (01:43→10:13)
[2018-08-08] MEDS ORDERED: PANTOPRAZOLE 40MG TABLET PO SCH (06:30)
[2018-08-08 06:35] LABS: Absolute Lymphocytes (CBC) 0.5 K/uL (0.7-4.9); Absolute Monocytes 0.2 K/uL (0.1-1.3); Absolute Neutrophil 5.7 K/uL (1.8-8.0); Basophils % 0.1 % (0-1.3); Hematocrit 27.9 % (36.0-45.0); Lymphocytes % 7.7 % (15.3-44.8); MPV 9.8 fL (7.6-11.3); Monocytes % 2.9 % (3.3-12.3); RBC Red Blood Cell Count 3.33 M/uL (3.86-4.86)
[2018-08-08 06:44] LABS: ALT/SGPT 9 U/L (12-78); AST/SGOT 6 U/L (15-37); Alkaline Phosphatase 57 U/L (45-117); BUN Blood Urea Nitrogen 6 mg/dL (7-18); Bicarbonate 25 mmol/L (21-32); Bilirubin Total 0.3 mg/dL (0.2-1.0); Glucose Level 142 mg/dL (74-106); Protein, Total 6.2 g/dL (6.4-8.2); Sodium Level 144 mmol/L (136-145)
[2018-08-08] MEDS: CIPROFLOXACIN 400mg IV 400 MG/200 ML BAG IV SCH (08:54)
[2018-08-08] MEDS: ENSURE CLEAR 200 ML CAN PO SCH (08:56)
[2018-08-08] MEDS: HOME MED 1 EA UNK (Mesalamine [Mesalamine] 2 TAB) PO SCH (09:00)
--- NOTE | 2018-08-08 12:54 | P.DS ---
Admission Date: 08/06/18 Discharge Date: 08/08/18 Disposition: ROUTINE DISCHARGE Discharge Condition: GOOD Reason for Admission: Abdominal pain Consultations: Gastroenterology Brief History of Present Illness: The patient is a 38-year-old female with past medical history of ulcerative colitis diagnosed about 4 years ago, who has been seeing Dr. Rhoaeds as an outpatient, on mesalamine and omeprazole, whose last flare-up was approximately 1 year ago, comes in with acute abdominal pain that has been ongoing for the past 4 days. The patient states her symptoms are constant, moderate, progressively worsening. She is unable to tolerate any p.o. intake. She has had several episodes of nausea and vomiting. No diarrhea or constipation. No blood in the stool. The patient denies any fevers, chills or ill contacts. The patient's last scope was approximately 5 to 6 months ago in the summer and things were looking better. There were a few abnormal areas according to the family member. The patient was recently in the ER the day prior to admission, was given pain medications and sent home. In the ER, her workup revealed normal white blood cell count. Imaging studies including the acute abdominal series showed an unremarkable bowel gas pattern. The patient was given IV pain medications, antiemetics, and IV steroids. The patient was then referred for admission. Dr. Mehta spoke with Dr. Rhoades who will see the patient in a.m. The patient was referred for admission. When seen in the ER, she was drowsy due to pain medications. Otherwise, complaining of some abdominal pain and burning chest pain from reflux. Hospital Course: Patient was admitted for acute abdomen pain, likely secondary to ulcerative colitis flare up. She was kept NPO, started on IVF, IV pain medications, antiemetics, antibiotics and IV steroids. GI was consulted. Her symptoms improved. She was started on a clear liquid diet, and her diet was advanced as she was able to tolerate. Prior to discharge, she was AAOx3, hemodynamically stable, tolerating a GI soft diet and ambulating without concerns. She was then cleared for discharge from GI point of view. She was discharged on PO antibiotics, PO prednisone. She is to follow up with her PCP in 2-3 days and GI in 2 weeks. Her diagnosis/treatment plan was discussed with her. All questions were answered and she verbalized understanding. She was discharged home in a safe and stable manner. Vital Signs/Physical Exam: Temp Pulse Resp BP Pulse Ox 98.5 F 74 16 108/60 98 08/08/18 08:00 08/08/18 08:00 08/08/18 08:00 08/08/18 08:00 08/08/18 08:00 General: Alert, In no apparent distress, Oriented x3 HEENT: Atraumatic, PERRLA, EOMI Neck: Supple, JVD not distended Respiratory: Clear to auscultation bilaterally, Normal air movement Cardiovascular: Regular rate/rhythm, Normal S1 S2 Gastrointestinal: Normal bowel sounds, No tenderness Musculoskeletal: No tenderness Integumentary: No rashes Neurological: Normal speech, Normal tone, Normal affect Lymphatics: No axilla or inguinal lymphadenopathy Laboratory Data at Discharge: WBC 6.4 K/uL (4.3-10.9) D 08/08/18 05:51 Hgb 9.7 g/dL (12.0-15.0) L 08/08/18 05:51 Hct 27.9 % (36.0-45.0) L 08/08/18 05:51 Plt Count 234 K/uL (152-406) 08/08/18 05:51 Sodium 144 mmol/L (136-145) 08/08/18 05:51 Potassium 4.0 mmol/L (3.5-5.1) 08/08/18 05:51 BUN 6 mg/dL (7-18) L 08/08/18 05:51 Creatinine 0.80 mg/dL (0.55-1.3) 08/08/18 05:51 Glucose 142 mg/dL (74-106) H 08/08/18 05:51 Magnesium 1.9 mg/dL (1.8-2.4) 08/07/18 06:06 Total Bilirubin 0.3 mg/dL (0.2-1.0) 08/08/18 05:51 AST 6 U/L (15-37) L 08/08/18 05:51 ALT 9 U/L (12-78) L 08/08/18 05:51 Alkaline Phosphatase 57 U/L (45-117) 08/08/18 05:51 Lipase 262 U/L (73-393) 08/06/18 09:50 Home Medications: Mesalamine 2 tab PO DAILY 08/06/18 Omeprazole [Prilosec] 40 mg PO DAILY 08/06/18 Ciprofloxacin HCl [Cipro 500 MG Tablet] 500 mg PO BID #10 tab 08/08/18 metroNIDAZOLE [Flagyl] 500 mg PO Q8H #15 tablet 08/08/18 predniSONE [Deltasone] 20 mg PO BID #14 tab 08/08/18 New Medications: Ciprofloxacin HCl [Cipro 500 MG Tablet] 500 mg PO BID #10 tab metroNIDAZOLE [Flagyl] 500 mg PO Q8H #15 tablet predniSONE [Deltasone] 20 mg PO BID #14 tab Patient Discharge Instructions: Please follow up with your primary care physician in 2-3 days. Please follow up with GI, Dr. Rhoades in 2 weeks. New medications: Ciprofloxacin, flagyl (Antibiotics), prednisone (steroids). Return to the Emergency room for worsening symptoms. Diet: GI soft Activity: Ad polly Followup: Houston Rhoades MD [ACTIVE - CAN ADMIT] - 1-2 Weeks Time spent managing pt's care (in minutes): 55
[2018-08-08 13:38] VITALS: O2SAT 98
[2018-08-08 13:39] VITALS: BP 100/58; TEMP 97.2
== END 2018-08-08 17:26 | disposition home or self-care (01) | DRG 386 ==
LOC: ER 09:10 → ERHOLD 13:08 → 2ND 18:07
PROVIDERS: ADMIT Family Medicine; ATTEND Family Medicine
DX: K51.90 Ulcerative colitis, unspecified, without complications (principal); R64 Cachexia; Z68.1 Body mass index [BMI] 19.9 or less, adult; E86.0 Dehydration; K21.9 Gastro-esophageal reflux disease without esophagitis
CPT/HCPCS: 36415; 74022; 80048; 80053; 80076; 81001; 81003; 81015; 81025; 83690; 83735; 84703; 85025; 93005; 94760; 96361; 96374; 96375; 99284; 99285; C9113; J0744; J2270; J2405; J2550; J2930; J3010; J7030